=== PATIENT | male | born 1955 | race Caucasian/White ===

== ENCOUNTER → 2017-01-18 | Outpatient (CLI) | payer OTHER, BC ==
[~2017-01-18] MED LIST: ALPRAZOLAM0.25 M2 PO; ASPIR-LOW81 MG PO; BRILINTA90 MG PO; CRANBERRY400 M1 PO; CYCLOBENZAPRINE10 MG PO; FLEXERIL10 MG PO; FLUCONAZOLE100 MG; HUMULIN R500 UNITS/ SC; INSULIN PUMP SCCONT; LEVEMIR FL100 UNIT/1 SC; LEVEMIR FL100 UNITS/ SC; LEVEMIR100 UNIT/2; LISINOPRIL10 MG PO; LISINOPRIL2.5 MG PO; LOPRESSOR25 MG PO; LOSARTAN POTASS25 MG PO; MELOXICAM7.5 MG; METOPROLOL TART25 MG PO; MOBIC7.5 MG PO; MONTELUKAST SOD10 MG PO; NITROGLYCERIN0.4 MG SL; NOVOFINE NEE1 NEEDLE; NOVOLOG PE100 UNITS/ SC; NOVOLOG100 UNIT/1 SC; PRAVASTATIN SOD40 MG PO; PROTONIX40 MG PO; RANITIDINE HCL150 M1 PO; ST. JOSEPH ASPI81 MG PO; TRAMADOL HCL50 MG PO; VITAMIN D1000 UNIT PO; VITAMIN D2000 UNIT PO; XANAX0.25 MG PO; ZETIA10 MG PO
== END | disposition home or self-care (01) ==
LOC: NUC 07:08
DX: I25.10 Atherosclerotic heart disease of native coronary artery without angina pectoris (principal); I21.29 ST elevation (STEMI) myocardial infarction involving other sites
CPT/HCPCS: 78452; 93017; A9500; J2785

== ENCOUNTER 2017-02-15 06:16 | Day surgery (SDC) | payer OTHER, BC ==
[~2017-02-15] VITALS: Ht 182.9 cm; Wt 114.0 kg
[~2017-02-15 06:16] MED LIST changes: +COLCRYS0.6 MG PO; +COZAAR100 MG PO; +DIFLUCAN100 MG PO; +LASIX40 MG PO; +REQUIP0.25 MG PO; +VENTOLIN HFA18 GM IH; +[UNRECOGNIZED DRUG - OTHER]
[2017-02-15 07:03] VITALS: BP 154/75
[2017-02-15 07:14] LABS: POINT-OF-CARE METER ID UU14174212
[2017-02-15 07:53] LABS: HEMATOCRIT 41.3 % (38.0-50.0); MCH 31.4 PG (29.0-34.0); MCHC 34.9 G/DL (30.0-36.0); MCV 90.2 FL (86-99); MEAN PLAT.VOLUME 9.4 uM^3 (9.0-12.4); PLATELET COUNT 207 K/uL (156-360); RBC DIS.WIDTH-CV 12.6 % (11.8-14.6); RBC DIS.WIDTH-SD 41.6 % (39-53); RED BLOOD COUNT 4.58 M/uL (4.00-5.50); WHITE BLOOD COUNT 8.9 K/uL (4.1-10.2)
[2017-02-15 08:04] LABS: ANION GAP 8 MEQ/L (2-14); CHLORIDE 107 MEQ/L (99-109); POTASSIUM 3.7 MEQ/L (3.7-5.4); SAMPLE HEMOLYSIS CHECK 0; SAMPLE ICTERIC CHECK 0; SAMPLE LIPEMIA CHECK 0; SODIUM 140 MEQ/L (136-147)
[2017-02-15 08:09] LABS: GFR ESTIMATE (CALCULATED) > 59 mL/min/; GLUCOSE 103 mg/dL (70-99); UREA NITROGEN (BUN) 13 mg/dL (9-23)
[2017-02-15 10:45] LABS: POINT-OF-CARE METER ID UU13113655; POINT-OF-CARE USER ID ENVKLS06
[2017-02-15 11:38] LABS: POINT-OF-CARE METER ID UU13113675
[2017-02-15 13:27] VITALS: BP 180/98
[2017-02-15 16:21] VITALS: BP 180/97
[2017-02-15 16:34] LABS: POINT-OF-CARE METER ID UU14162508
[2017-02-15 19:22] VITALS: BP 162/80
[2017-02-15 21:12] LABS: POINT-OF-CARE METER ID UU14162508
[2017-02-16 00:15] VITALS: BP 148/77
[2017-02-16 00:43] LABS: POINT-OF-CARE METER ID UU14162508
[2017-02-16 03:27] VITALS: BP 137/89
[2017-02-16 06:55] VITALS: BP 157/76
[2017-02-16 07:48] LABS: HEMATOCRIT 44.3 % (38.0-50.0); MCH 30.4 PG (29.0-34.0); MCHC 34.1 G/DL (30.0-36.0); MCV 89.3 FL (86-99); MEAN PLAT.VOLUME 9.4 uM^3 (9.0-12.4); PLATELET COUNT 241 K/uL (156-360); RBC DIS.WIDTH-CV 12.6 % (11.8-14.6); RBC DIS.WIDTH-SD 41.5 % (39-53); RED BLOOD COUNT 4.96 M/uL (4.00-5.50); WHITE BLOOD COUNT 9.5 K/uL (4.1-10.2)
[2017-02-16 08:00] LABS: Estimated Average Glucose 194 mg/dL (70-123); HEMOGLOBIN A1c (GLYCOHEMOGLOB) 8.4 % HGB (Below 5.7)
[2017-02-16 08:19] LABS: ANION GAP 11 MEQ/L (2-14); CHLORIDE 104 MEQ/L (99-109); GFR ESTIMATE (CALCULATED) > 59 mL/min/; SAMPLE HEMOLYSIS CHECK 0; SAMPLE ICTERIC CHECK 0; SAMPLE LIPEMIA CHECK 0; SODIUM 139 MEQ/L (136-147); UREA NITROGEN (BUN) 17 mg/dL (9-23)
[2017-02-16 08:20] LABS: GLUCOSE 364 mg/dL (70-99); POTASSIUM 4.5 MEQ/L (3.7-5.4)
[2017-02-16] MEDS ORDERED: HYCET 7.5 MG-3473 ML PO (21:00)
[2017-02-16] MEDS ORDERED: DUONEB 2.5-0.5 M3 ML AEROSOL (21:02)
[2017-02-16] MEDS ORDERED: GLUCAGON1 MG IM (21:02)
[2017-02-16] MEDS ORDERED: KEFLEX500 MG PO (21:03)
[2017-02-16] MEDS ORDERED: PERCOCET 5/31 TABLET PO (21:03)
== END 2017-02-16 12:14 | disposition home or self-care (01) ==
LOC: SDC 06:16 → 2EAST 11:05 → 2SOUTH 11:05 → 2EAST 14:29 → SDC 14:44 → 2EAST 02-16 12:14
PROVIDERS: Family Medicine; Otolaryngology
DX: G47.33 Obstructive sleep apnea (adult) (pediatric) (principal); J35.1 Hypertrophy of tonsils; K13.79 Other lesions of oral mucosa; I10 Essential (primary) hypertension; I25.10 Atherosclerotic heart disease of native coronary artery without angina pectoris; E10.65 Type 1 diabetes mellitus with hyperglycemia; Z96.41 Presence of insulin pump (external) (internal); K21.9 Gastro-esophageal reflux disease without esophagitis; F41.9 Anxiety disorder, unspecified; E78.5 Hyperlipidemia, unspecified; Z86.73 Personal history of transient ischemic attack (TIA), and cerebral infarction without residual deficits; I25.2 Old myocardial infarction; Z83.3 Family history of diabetes mellitus; Z87.891 Personal history of nicotine dependence
CPT/HCPCS: 80048; 82948; 83036; 85027; 88304; C9113; G0378; J0131; J0330; J0360; J0690; J1100; J1170; J1815; J2250; J2405; J3010; J7050; J8540

== ENCOUNTER 2017-02-16 16:46 | Inpatient (IN) | payer OTHER, BC ==
[~2017-02-16] VITALS: Ht 182.9 cm; Wt 112.8 kg
[2017-02-16 17:48] LABS: POINT-OF-CARE METER ID UU13113800; POINT-OF-CARE USER ID 608261302
[2017-02-16 18:22] LABS: INTER. NORMALIZED RATIO 1.2; PROTHROMBIN TIME 11.8 (9.2-11.2); PTT 26.4 (25-32)
[2017-02-16 18:25] LABS: HEMATOCRIT 43.3 % (38.0-50.0); MCH 30.9 PG (29.0-34.0); MCHC 34.9 G/DL (30.0-36.0); MCV 88.7 FL (86-99); MEAN PLAT.VOLUME 8.8 uM^3 (9.0-12.4); PLATELET COUNT 233 K/uL (156-360); RBC DIS.WIDTH-CV 12.8 % (11.8-14.6); RBC DIS.WIDTH-SD 41.6 % (39-53); RED BLOOD COUNT 4.88 M/uL (4.00-5.50)
[2017-02-16 18:26] LABS: CHLORIDE 108 mEq/L (99-109); POTASSIUM 4.5 mEq/L (3.7-5.4); SODIUM 143 mEq/L (136-147)
[2017-02-16 18:28] LABS: GLUCOSE 234 mg/dL (70-99)
[2017-02-16 18:29] LABS: ANION GAP 10 MEQ/L (2-14)
[2017-02-16 18:30] LABS: TOTAL BILIRUBIN 1.4 mg/dL (0.0-1.0)
[2017-02-16 18:32] LABS: ALKALINE PHOSPHATASE 132 IU/L (3-129); GFR ESTIMATE (CALCULATED) > 59 mL/min/
[2017-02-16 18:33] LABS: UREA NITROGEN (BUN) 20 mg/dL (9-23)
[2017-02-16 18:38] LABS: WHITE BLOOD COUNT 12.8 K/uL (4.1-10.2)
[2017-02-16] MEDS ORDERED: HYCET 7.5 MG-3473 ML PO (21:00)
[2017-02-16] MEDS ORDERED: DUONEB 2.5-0.5 M3 ML AEROSOL (21:02)
[2017-02-16] MEDS ORDERED: GLUCAGON1 MG IM (21:02)
[2017-02-16] MEDS ORDERED: KEFLEX500 MG PO (21:03)
[2017-02-16] MEDS ORDERED: PERCOCET 5/31 TABLET PO (21:03)
[2017-02-17 00:29] VITALS: BP 151/84
[2017-02-17 04:47] VITALS: BP 172/76; BP 172/77
[2017-02-17 07:08] VITALS: BP 153/92
[2017-02-17 15:46] VITALS: BP 161/96
[2017-02-18 00:07] VITALS: BP 174/71
[2017-02-18 01:27] VITALS: BP 134/72
[2017-02-18 04:51] LABS: EOSINOPHIL (%) 0.9 % (0-5); EOSINOPHIL COUNT 0.1 K/uL (0-0.3); HEMATOCRIT 41.6 % (38.0-50.0); IMMATURE GRANULOCYTE (%) 0.3 % (0.0-0.7); INSTRUMENT ABS NEUTROPHIL CT 6.1 K/uL; LYMPHOCYTE COUNT 2.5 K/uL (1.0-2.8); MCH 30.5 PG (29.0-34.0); MCHC 33.9 G/DL (30.0-36.0); MONOCYTE COUNT 0.5 K/uL (0-0.8); NEUTROPHIL (%) 66.1 % (45-76); NEUTROPHIL COUNT 6.1 K/uL (1.8-6.4); PLATELET COUNT 193 K/uL (156-360); RBC DIS.WIDTH-CV 12.7 % (11.8-14.6); RED BLOOD COUNT 4.62 M/uL (4.00-5.50); WHITE BLOOD COUNT 9.2 K/uL (4.1-10.2)
[2017-02-18 05:49] LABS: CHLORIDE 107 mEq/L (99-109); POTASSIUM 3.9 mEq/L (3.7-5.4); SODIUM 140 mEq/L (136-147)
[2017-02-18 05:50] LABS: GLUCOSE 181 mg/dL (70-99)
[2017-02-18 05:52] LABS: ANION GAP 11 MEQ/L (2-14)
[2017-02-18 05:54] LABS: GFR ESTIMATE (CALCULATED) > 59 mL/min/
[2017-02-18 05:55] LABS: UREA NITROGEN (BUN) 13 mg/dL (9-23)
[2017-02-18 07:10] VITALS: BP 144/94
[2017-02-18 12:31] LABS: POINT-OF-CARE METER ID UU14162508
[2017-02-18 15:45] VITALS: BP 154/86
[2017-02-18 17:12] LABS: POINT-OF-CARE METER ID UU14162508
[2017-02-18 20:06] LABS: POINT-OF-CARE METER ID UU14162508
[2017-02-18 21:00] LABS: GLUCOSE 137 mg/dL (70-99)
[2017-02-18 21:08] LABS: POINT-OF-CARE METER ID UU14162508
[2017-02-18 23:19] VITALS: BP 168/79
[2017-02-19 00:36] LABS: POINT-OF-CARE METER ID UU14162508
[2017-02-19 04:18] LABS: POINT-OF-CARE METER ID UU14162508
[2017-02-19 07:20] VITALS: BP 158/98
[2017-02-19 11:20] VITALS: BP 162/98
[2017-02-19 11:36] LABS: POINT-OF-CARE METER ID UU14162508
[2017-02-19 12:21] LABS: POINT-OF-CARE METER ID UU14162508
[2017-02-19 15:40] VITALS: BP 160/88
[2017-02-19 16:19] LABS: POINT-OF-CARE METER ID UU14162508
[2017-02-19 20:08] LABS: POINT-OF-CARE METER ID UU14162508
[2017-02-19 20:51] LABS: POINT-OF-CARE METER ID UU14162508
[2017-02-19 23:28] VITALS: BP 165/78
[2017-02-20 00:11] LABS: POINT-OF-CARE METER ID UU14162508
[2017-02-20 01:37] LABS: POINT-OF-CARE METER ID UU14162508
[2017-02-20 04:34] LABS: POINT-OF-CARE METER ID UU14162508
[2017-02-20 07:55] VITALS: BP 176/105
[2017-02-20 12:00] VITALS: BP 157/86
[2017-02-20 12:09] LABS: POINT-OF-CARE METER ID UU14162508
[2017-02-20 16:00] VITALS: BP 156/90
[2017-02-21 00:06] VITALS: BP 130/79
[2017-02-21 07:00] VITALS: BP 185/85
[2017-02-21 11:30] VITALS: BP 162/99
[2017-02-21 15:36] VITALS: BP 123/81
== END 2017-02-21 16:19 | disposition home health service (06) | DRG 639 ==
LOC: EME 16:46 → RME 16:46 → 2EAST 21:19 → EDOF 21:19 → 2EAST 21:19
PROVIDERS: Family Medicine; Internal Medicine; Nurse Practitioner Family
DX: E10.65 Type 1 diabetes mellitus with hyperglycemia (principal); R13.10 Dysphagia, unspecified; R13.0 Aphagia; I25.10 Atherosclerotic heart disease of native coronary artery without angina pectoris; G47.33 Obstructive sleep apnea (adult) (pediatric); I10 Essential (primary) hypertension; E78.5 Hyperlipidemia, unspecified; K21.9 Gastro-esophageal reflux disease without esophagitis; F41.9 Anxiety disorder, unspecified; E66.9 Obesity, unspecified; Z96.41 Presence of insulin pump (external) (internal); Z68.33 Body mass index [BMI] 33.0-33.9, adult; Z95.1 Presence of aortocoronary bypass graft; Z79.4 Long term (current) use of insulin
CPT/HCPCS: 70360; 70450; 80048; 80053; 82948; 84999; 85025; 85027; 85610; 85730; 92610 GN; 99202; 99281; 99285; C9113; J0360; J0690; J1815; J2270; J2405; J7030; J7050

== ENCOUNTER 2018-02-12 21:50 | Emergency (ER) | payer OTHER, BC ==
[~2018-02-12] VITALS: Ht 182.9 cm; Wt 116.5 kg
[~2018-02-12 21:50] MED LIST changes: +DUONEB 2.5-0.5 M3 ML AEROSOL; +GLUCAGON1 MG IM; +HYCET 7.5 MG-3473 ML PO; +KEFLEX500 MG PO; +PERCOCET 5/31 TABLET PO
[2018-02-12 23:37] LABS: HEMATOCRIT 41.7 % (38.0-50.0); HEMOGLOBIN 14.8 G/DL (12.5-16.6); MCH 31.2 PG (29.0-34.0); MCHC 35.5 G/DL (30.0-36.0); PLATELET COUNT 213 K/uL (156-360); RBC DIS.WIDTH-CV 12.2 % (11.8-14.6); RBC DIS.WIDTH-SD 39.1 % (39-53); RED BLOOD COUNT 4.74 M/uL (4.00-5.50); WHITE BLOOD COUNT 9.5 K/uL (4.1-10.2)
[2018-02-12 23:47] LABS: CHLORIDE 98 mEq/L (99-109); POTASSIUM 4.2 mEq/L (3.7-5.4); SODIUM 135 mEq/L (136-147)
[2018-02-12 23:49] LABS: GLUCOSE 329 mg/dL (70-99)
[2018-02-12 23:53] LABS: CREATININE 0.8 mg/dL (0.6-1.3); GFR ESTIMATE (CALCULATED) > 59 mL/min/ (58.99-99999)
[2018-02-12 23:54] LABS: UREA NITROGEN (BUN) 12 mg/dL (9-23)
[2018-02-13 00:21] LABS: ERTH.SED.RATE 22 MM/HR (0-20)
[2018-02-13 02:26] LABS: C-REACTIVE PROTEIN 38.9 MG/L (0-10)
[2018-02-13] MEDS ORDERED: INDOCIN50 MG PO (02:54)
[2018-02-13 04:20] VITALS: BP 150/80
[2018-02-13 04:51] LABS: URIC ACID 6.4 mg/dL (3.1-9.2)
[2018-02-13] MEDS ORDERED: LO-DOSE ASPIRIN81 M2 PO (18:06)
[2018-02-13] MEDS ORDERED: FLEXERIL5 MG PO (18:06)
[2018-02-13] MEDS ORDERED: PRAVASTATIN SOD40 MG PO (18:06)
[2018-02-13] MEDS ORDERED: VITAMIN D22000 UNIT PO (18:09)
[2018-02-13] MEDS ORDERED: CRANBERRY TABL1 EACH PO (18:10)
[2018-02-13] MEDS ORDERED: FISH OIL 1,0001 EAC7 PO (18:10)
[2018-02-14] MEDS ORDERED: FLEXERIL10 MG PO (19:00)
== END 2018-02-13 04:23 | disposition home or self-care (01) ==
LOC: EME 21:50
PROVIDERS: Emergency Medicine
DX: L03.114 Cellulitis of left upper limb (principal); E11.65 Type 2 diabetes mellitus with hyperglycemia; M19.042 Primary osteoarthritis, left hand; R22.32 Localized swelling, mass and lump, left upper limb; Z79.4 Long term (current) use of insulin; J44.9 Chronic obstructive pulmonary disease, unspecified; I10 Essential (primary) hypertension; I25.2 Old myocardial infarction; K21.9 Gastro-esophageal reflux disease without esophagitis; Z86.73 Personal history of transient ischemic attack (TIA), and cerebral infarction without residual deficits; Z95.5 Presence of coronary angioplasty implant and graft; Z88.5 Allergy status to narcotic agent; Z87.891 Personal history of nicotine dependence; F41.9 Anxiety disorder, unspecified
CPT/HCPCS: 73110; 73200; 80048; 82948; 83605; 84550; 85027; 85651; 86140; 87040; 99281; 99285; J3370; J7030

== ENCOUNTER 2018-02-14 16:43 | Emergency (ER) | payer OTHER, BC ==
[~2018-02-14] VITALS: Ht 182.9 cm; Wt 115.7 kg
[~2018-02-14 16:43] MED LIST changes: +CRANBERRY TABL1 EACH PO; +FISH OIL 1,0001 EAC7 PO; +FLEXERIL5 MG PO; +INDOCIN50 MG PO; +LO-DOSE ASPIRIN81 M2 PO; +VITAMIN D22000 UNIT PO
[2018-02-14] MEDS ORDERED: FLEXERIL10 MG PO (19:00)
[2018-02-14 19:38] VITALS: BP 145/89
== END 2018-02-14 19:39 | disposition home or self-care (01) ==
LOC: EME 16:43
PROVIDERS: Emergency Medicine
DX: S16.1XXA Strain of muscle, fascia and tendon at neck level, initial encounter (principal); V59.40XA Driver of pick-up truck or van injured in collision with unspecified motor vehicles in traffic accident, initial encounter; Y92.410 Unspecified street and highway as the place of occurrence of the external cause; J44.9 Chronic obstructive pulmonary disease, unspecified; I25.2 Old myocardial infarction; I10 Essential (primary) hypertension; F41.9 Anxiety disorder, unspecified; Z86.73 Personal history of transient ischemic attack (TIA), and cerebral infarction without residual deficits; K21.9 Gastro-esophageal reflux disease without esophagitis; Z95.5 Presence of coronary angioplasty implant and graft; Z88.5 Allergy status to narcotic agent; Z87.891 Personal history of nicotine dependence
CPT/HCPCS: 70450; 71046; 72125; 82948; 99281; 99285

== ENCOUNTER 2018-05-01 15:47 | Observation (INO) | payer OTHER, BC ==
[~2018-05-01] VITALS: Ht 182.9 cm; Wt 114.2 kg
[~2018-05-01 15:47] MED LIST changes: -METOPROLOL TART25 MG PO; +PRAVACHOL20 MG PO; +TOPROL XL25 MG PO
[2018-05-01 16:28] LABS: HEMATOCRIT 42.6 % (38.0-50.0); HEMOGLOBIN 15.4 G/DL (12.5-16.6); MCHC 36.2 G/DL (30.0-36.0); MCV 85.7 FL (86-99); PLATELET COUNT 202 K/uL (156-360); RBC DIS.WIDTH-CV 12.5 % (11.8-14.6); RBC DIS.WIDTH-SD 38.7 % (39-53); RED BLOOD COUNT 4.97 M/uL (4.00-5.50); WHITE BLOOD COUNT 6.3 K/uL (4.1-10.2)
[2018-05-01 16:41] LABS: CHLORIDE 107 mEq/L (99-109); POTASSIUM 4.2 mEq/L (3.7-5.4); SODIUM 140 mEq/L (136-147)
[2018-05-01 16:42] LABS: GLUCOSE 274 mg/dL (70-99)
[2018-05-01 16:46] LABS: CREATININE 0.8 mg/dL (0.6-1.3); GFR ESTIMATE (CALCULATED) > 59 mL/min/ (58.99-99999)
[2018-05-01 16:47] LABS: UREA NITROGEN (BUN) 11 mg/dL (9-23)
[2018-05-01 16:51] LABS: TROP-I INTERPRETATION NEGATIVE; TROPONIN-I 0.08 ng/mL (0.0-0.30)
[2018-05-01] MEDS ORDERED: FLEXERIL10 MG PO (18:28)
[2018-05-01] MEDS ORDERED: CYMBALTA60 MG PO (18:34)
[2018-05-01] MEDS ORDERED: CO Q-10100 MG PO (18:34)
[2018-05-01] MEDS ORDERED: FUROSEMIDE40 MG PO (18:35)
[2018-05-01] MEDS ORDERED: CLOBETASOL PROP60 GM TP (18:35)
[2018-05-01] MEDS ORDERED: SINGULAIR10 MG PO (18:36)
[2018-05-01 19:55] VITALS: BP 163/89
[2018-05-01 23:28] VITALS: BP 165/89
[2018-05-02 01:18] LABS: TROP-I INTERPRETATION POSITIVE
[2018-05-02 01:19] LABS: TROPONIN-I 0.95 ng/mL (0.0-0.30)
[2018-05-02 04:00] VITALS: BP 142/70
[2018-05-02 07:56] VITALS: BP 184/117
[2018-05-02 08:20] LABS: HEMATOCRIT 44.7 % (38.0-50.0); HEMOGLOBIN 15.5 G/DL (12.5-16.6); MCH 30.3 PG (29.0-34.0); MCHC 34.7 G/DL (30.0-36.0); MCV 87.3 FL (86-99); PLATELET COUNT 190 K/uL (156-360); RBC DIS.WIDTH-CV 12.8 % (11.8-14.6); RBC DIS.WIDTH-SD 41.1 % (39-53); RED BLOOD COUNT 5.12 M/uL (4.00-5.50); WHITE BLOOD COUNT 8.8 K/uL (4.1-10.2)
[2018-05-02 08:51] LABS: CHLORIDE 105 MEQ/L (99-109); CREATININE 0.6 MG/DL (0.6-1.3); GFR ESTIMATE (CALCULATED) > 59 mL/min/ (58.99-99999); GLUCOSE 238 mg/dL (70-99); POTASSIUM 4.5 MEQ/L (3.7-5.4); SODIUM 140 MEQ/L (136-147); TROPONIN-I 2.25 ng/mL (0.0-0.30); UREA NITROGEN (BUN) 8 mg/dL (9-23)
[2018-05-02 08:52] LABS: TROP-I INTERPRETATION POSITIVE
[2018-05-02 11:33] VITALS: BP 146/74
[2018-05-02 21:35] VITALS: BP 165/83
[2018-05-02 22:03] LABS: TROP-I INTERPRETATION POSITIVE; TROPONIN-I 5.54 ng/mL (0.0-0.30)
[2018-05-02 23:18] VITALS: BP 122/75
[2018-05-03 03:11] VITALS: BP 124/73
[2018-05-03 05:28] LABS: BASOPHIL (%) 0.5 % (0-1); EOSINOPHIL (%) 1.5 % (0-5); EOSINOPHIL COUNT 0.1 K/uL (0-0.3); HEMATOCRIT 41.7 % (38.0-50.0); HEMOGLOBIN 14.5 G/DL (12.5-16.6); IMMATURE GRANULOCYTE (%) 0.3 % (0.0-0.7); LYMPHOCYTE (%) 30.2 % (15-42); LYMPHOCYTE COUNT 2.4 K/uL (1.0-2.8); MCH 30.1 PG (29.0-34.0); MCHC 34.8 G/DL (30.0-36.0); MCV 86.5 FL (86-99); MONOCYTE (%) 7.4 % (3-12); MONOCYTE COUNT 0.6 K/uL (0-0.8); NEUTROPHIL (%) 60.1 % (45-76); NEUTROPHIL COUNT 4.8 K/uL (1.8-6.4); PLATELET COUNT 190 K/uL (156-360); RBC DIS.WIDTH-CV 12.8 % (11.8-14.6); RBC DIS.WIDTH-SD 40.4 % (39-53); RED BLOOD COUNT 4.82 M/uL (4.00-5.50)
[2018-05-03 05:52] LABS: CHLORIDE 103 MEQ/L (99-109); CREATININE 0.8 MG/DL (0.6-1.3); GFR ESTIMATE (CALCULATED) > 59 mL/min/ (58.99-99999); GLUCOSE 221 mg/dL (70-99); POTASSIUM 4.5 MEQ/L (3.7-5.4); SODIUM 138 MEQ/L (136-147); UREA NITROGEN (BUN) 12 mg/dL (9-23)
[2018-05-03 08:04] VITALS: BP 143/74
[2018-05-03 14:45] VITALS: BP 164/95
== END 2018-05-03 18:00 | disposition home or self-care (01) ==
LOC: EME 15:47 → EDOF 17:45 → 4EAST 17:45 → 4SOUTH 17:45 → EDOF 17:45 → ENRESERV 18:02 → CANRESERV 18:18 → 4SOUTH 19:20 → ENRESERV 05-02 14:55 → 4EAST 05-02 21:09
PROVIDERS: Family Medicine; Nurse Practitioner Family
DX: I21.4 Non-ST elevation (NSTEMI) myocardial infarction (principal); I25.10 Atherosclerotic heart disease of native coronary artery without angina pectoris; I27.21 Secondary pulmonary arterial hypertension; T82.858A Stenosis of other vascular prosthetic devices, implants and grafts, initial encounter; Y83.1 Surgical operation with implant of artificial internal device as the cause of abnormal reaction of the patient, or of later complication, without mention of misadventure at the time of the procedure; I11.0 Hypertensive heart disease with heart failure; I50.30 Unspecified diastolic (congestive) heart failure; I25.2 Old myocardial infarction; E11.65 Type 2 diabetes mellitus with hyperglycemia; E11.69 Type 2 diabetes mellitus with other specified complication; E78.5 Hyperlipidemia, unspecified; Z96.41 Presence of insulin pump (external) (internal); E66.9 Obesity, unspecified; Z68.34 Body mass index [BMI] 34.0-34.9, adult; Z79.82 Long term (current) use of aspirin; F32.9 Major depressive disorder, single episode, unspecified; F41.9 Anxiety disorder, unspecified; G89.4 Chronic pain syndrome; Z87.891 Personal history of nicotine dependence; Z95.5 Presence of coronary angioplasty implant and graft; Z88.8 Allergy status to other drugs, medicaments and biological substances; Z91.040 Latex allergy status
CPT/HCPCS: 71046; 80048; 82948; 84484; 85025; 85027; 85347; 93005; 94799; 99281; 99285; C1725; C1760; C1769; C1874; C1887; C1894; G0378; J1644; J1940; J2250; J3010